=== PATIENT | male | born 1995 | race Caucasian/White ===

== ENCOUNTER → 2019-07-14 | Outpatient (CLI) | payer OTHER ==
--- NOTE | 2019-07-14 12:20 | US ---
EXAMINATION TYPE: US scrotum with doppler. Grayscale and color Doppler Duplex imaging performed of t he scrotum. DATE OF EXAM: 07/14/2019 COMPARISON: NONE CLINICAL HISTORY: N50.82 Scrotal pain. Intermittent right scrotal pain which began on left side in pa [facility] 3 weeks; last week had fever and diarrhea; patient denies trauma; occasional pain right perineum t oo. EXAM MEASUREMENTS: TESTICLES: Right Testicle: 4.8 x 2.3 x 3.0 cm Left Testicle: 4.6 x 2.1 x 2.7 cm EPIDIDYMIS HEAD: Right Epididymis: 1.7 x 2.0 x 1.0 cm Left Epididymis: 0.9 x 1.5 x 0.8 cm Doppler was performed to assess for testicular vascularity; good bilateral color flow and PW waveform s are seen. There is no evidence of testicular torsion. Right testicular appendix is noted = 0.1 x 0.3 x 0.2cm. Small right hydroceles noted both inferiorly and superiorly with inferior = 1.4 x 0.9 x 0.8cm and sup erior hydrocele = 1.0 x 1.8 x 1.1cm. Presence of varicoceles: mildly prominent left veins noted at mid epididymal level . No masses are seen at perineum. IMPRESSION: 1. Small bilateral hydroceles and small left varicocele. 2. No evidence of testicular torsion. 3. Right testicular appendix is seen without blood flow. Testicular appendiceal torsion is possible i n the setting of right scrotal pain.
== END | disposition home or self-care (01) ==
LOC: RADUSMAIN 11:25
PROVIDERS: ATTEND Nurse Practitioner Family
DX: N43.3 Hydrocele, unspecified (principal); I86.1 Scrotal varices
CPT/HCPCS: 76870; 93975